=== PATIENT | female | born 1945 | race Hispanic/Latino ===

== ENCOUNTER → 2017-11-15 | Outpatient (CLI) | payer OTHER | LOC: RAH 14:28 | PROVIDERS: ATTEND Family Medicine | DX: Z12.31 Encounter for screening mammogram for malignant neoplasm of breast (principal) | CPT/HCPCS: 77067 ==

== ENCOUNTER → 2018-11-03 | Outpatient (CLI) | payer OTHER | END | disposition home or self-care (01) | LOC: RAH 12:45 | PROVIDERS: ATTEND Internal Medicine Cardiovascular Disease | DX: Z13.6 Encounter for screening for cardiovascular disorders (principal) | CPT/HCPCS: 75571 ==

== ENCOUNTER → 2018-12-26 | Outpatient (CLI) | payer OTHER | END | disposition home or self-care (01) | LOC: RAH 11:15 | PROVIDERS: ATTEND Family Medicine | DX: Z12.31 Encounter for screening mammogram for malignant neoplasm of breast (principal) | CPT/HCPCS: 77067 ==

== ENCOUNTER 2019-08-26 08:36 | Day surgery (SDC) | payer OTHER ==
[2019-08-25 10:33] VITALS: BP 114/55
[2019-08-25 10:36] LABS: BASOPHILS % (AUTO) 1.1 % (0.0-5.0); EOSINOPHILS % (AUTO) 1.9 % (0.0-8.0); HEMATOCRIT 41.9 % (36-48); LYMPHOCYTES % (AUTO) 13.4 % (21.0-51.0); MEAN CORPUSCULAR HEMOGLOBIN 28.7 pg (27.0-33.0); MEAN CORPUSCULAR HGB CONC 33.5 g/dL (32.0-36.0); MEAN CORPUSCULAR VOLUME 85.6 fL (79-99); MONOCYTES % (AUTO) 5.5 % (3.0-13.0); NEUTROPHILS % (AUTO) 78.1 % (40.0-77.0); PLATELET COUNT (AUTO) 374 K/uL (130-400); RED BLOOD CELL COUNT(AUTO) 4.89 MIL/uL (4.00-5.50); WHITE BLOOD COUNT (AUTO) 7.5 K/uL (4.8-10.8)
[2019-08-25 10:49] LABS: CREATININE 0.7 mg/dL (0.5-1.5); POTASSIUM 4.6 mmol/L (3.5-5.1)
[2019-08-25 10:52] LABS: INR 0.98 (0.85-1.15); PROTHROMBIN TIME 10.3 SEC (9.6-11.6)
[~2019-08-26] VITALS: Ht 165.1 cm; Wt 62.9 kg
[2019-08-26] VITALS (19 sets, daily range): BP systolic 111–144; BP diastolic 49–68
[~2019-08-26 08:36] MED LIST: ASPI-555 PO; ATOR40TA71 PO; CLOP75TA14 PO; FENTANYL CITRATE PF 50 MCG/1 ML 2ML VIAL ONE; FLUMAZENIL 0.1MG/1ML 5ML VIAL IV ONE; MIDAZOLAM HCL 1 MG/ML 2ML VIAL ONE; NALOXONE HCL 0.4 MG/1 ML ML ONE
--- NOTE | 2019-08-26 08:40 | NUR ---
PATIENT ARRIVED PATIENT ARRIVED TO DAY PATIENT ACCOMPANIED BY BROTHER. PATIENT AAOX3, RESPIRATIONS UNLABORED, VITAL SIGNS STABLE. PATIENT DENIES ANY PAIN AT THIS TIME. PROCEDURE VERIFIED AND CONFIRMED WITH PATIENT. HOSPITAL ROUTINE EXPLAINED TO PATIENT AND PT VERBALIZED UNDERSTANDING. ALL QUESTION/CONCERNS ADDRESSED.
[2019-08-26] MEDS ORDERED: LIDOCAINE HCL 2% VISCOUS 15 ML UDCUP ONE (10:13)
[2019-08-26] MEDS ORDERED: FENTANYL CITRATE PF 50 MCG/1 ML 2ML VIAL IVP ONE (11:00)
[2019-08-26] MEDS ORDERED: LIDOCAINE HCL 2% VISCOUS 15 ML UDCUP PO ONE (11:00)
[2019-08-26] MEDS ORDERED: MIDAZOLAM HCL 1 MG/ML 5ML VIAL IVP ONE (11:00)
[2019-08-26] MEDS ORDERED: MIDAZOLAM HCL 1 MG/ML 2ML VIAL ONE (11:38)
--- NOTE | 2019-08-26 12:04 | NUR ---
JEREMY PROCEDURE TRANSESOPHAGEAL ECHOCARDIOGRAM DONE BY DR GUERIN. 1128 TIMEOUT DONE BY HELLEN BELLO,RN AND PHYSICIAN (DR GUERIN) 1133 VERSED 2MG IV PUSH ADMINISTERED 1134 FENTANYL 25MCG IV PUSH ADMINISTERED 1136 FENTANYL 25MCG IV PUSH ADMINISTERED 1137 VERSED 2MG IV PUSH ADMINISTERED 1138 JEREMY PROCEDURE STARTED, SCOPE INTRODUCED INTO PATIENT'S MOUTH/ESOPHAGUS. PATIENT ASLEEP/SEDATED. 1148 JEREMY PROCEDURE COMPLETE, SCOPE REMOVED FROM PATIENT'S MOUTH, PATIENT TOLERATED PROCEDURE WELL 1149 DR GUERIN OUT OF ROOM
--- NOTE | 2019-08-26 13:26 | NUR ---
DISCHARGE INSTRUCTIONS: DISCHARGE INSTRUCTIONS GIVEN TO PATIENT'S BROTHER. FOLLOW UP APPOINTMENTS PROVIDED AND HANDOUTS ON JEREMY PROCEDURE PROVIDED AND EXPLAINED. ALL QUESTIONS/CONCERNS ADDRESSED.
--- NOTE | 2019-08-26 13:50 | NUR ---
PATIENT DISCHARGED PATIENT DISCHARGED FROM FACILITY VIA WHEELCHAIR BY DELMY. PATIENT ABLE TO TRANSFER INTO PRIVATE VEHICLE DRIVEN BY FAMILY MEMBER.
== END 2019-08-26 13:50 | disposition home or self-care (01) ==
LOC: DAH 08:36
PROVIDERS: ATTEND Internal Medicine Cardiovascular Disease
DX: I67.9 Cerebrovascular disease, unspecified (principal); I34.0 Nonrheumatic mitral (valve) insufficiency; I07.1 Rheumatic tricuspid insufficiency; E78.5 Hyperlipidemia, unspecified; Z79.899 Other long term (current) drug therapy; Z88.1 Allergy status to other antibiotic agents; Z79.01 Long term (current) use of anticoagulants
CPT/HCPCS: 36415; 80048; 85025; 85610; 85730; 93312; 93325; A4215; A4216; A4221; A4222; A4223 ×3; A4606; A4663; J2250 ×2; J3010; 93313; 99152; J2310; J3490

== ENCOUNTER → 2020-07-25 | Outpatient (CLI) | payer OTHER ==
[~2020-07-25] MED LIST changes: -ASPI-555 PO; +ASPI-556 PO; -FENTANYL CITRATE PF 50 MCG/1 ML 2ML VIAL ONE; -FLUMAZENIL 0.1MG/1ML 5ML VIAL IV ONE; -MIDAZOLAM HCL 1 MG/ML 2ML VIAL ONE; -NALOXONE HCL 0.4 MG/1 ML ML ONE
== END | disposition home or self-care (01) ==
LOC: RAH 11:17
PROVIDERS: ATTEND Internal Medicine
DX: Z12.31 Encounter for screening mammogram for malignant neoplasm of breast (principal); N64.89 Other specified disorders of breast
CPT/HCPCS: 77067

== ENCOUNTER → 2020-08-02 | Outpatient (CLI) | payer OTHER ==
[~2020-08-02] MED LIST changes: +REGADENOSON 0.4 MG/5 ML PF SYG IVP SCH
== END | disposition home or self-care (01) ==
LOC: SHCH 08:07
PROVIDERS: ATTEND Internal Medicine Cardiovascular Disease
DX: R07.9 Chest pain, unspecified (principal)
CPT/HCPCS: 78452; 93017; 96374; A9500 ×2; J2785

== ENCOUNTER → 2020-08-11 | Outpatient (CLI) | payer OTHER ==
[~2020-08-11] MED LIST changes: -REGADENOSON 0.4 MG/5 ML PF SYG IVP SCH
== END | disposition home or self-care (01) ==
LOC: RAH 14:05
PROVIDERS: ATTEND Internal Medicine Cardiovascular Disease
DX: Z13.6 Encounter for screening for cardiovascular disorders (principal)
CPT/HCPCS: 75571

== ENCOUNTER → 2023-08-01 | Outpatient (CLI) | payer OTHER ==
[~2023-08-01] MED LIST changes: +CLOP-31 PO; -CLOP75TA14 PO
== END | disposition home or self-care (01) ==
LOC: RAH 09:42
PROVIDERS: ATTEND Nurse Practitioner Family
DX: Z12.31 Encounter for screening mammogram for malignant neoplasm of breast (principal)
CPT/HCPCS: 77067

== ENCOUNTER → 2025-02-04 | Outpatient (CLI) | payer OTHER ==
--- NOTE | 2025-02-04 15:55 | HMCIMG ---
BONE DENSITOMETRY: HISTORY: Other specified disorders of bone density and structure, left thigh Comparison: none FINDINGS: BMD measured at AP spine L1-L4 is 1.088 g/cm2 with a T-score of 0.4 Bone density is up to 10% below young normal. This patient is considered normal according to WHO criteria. Fracture risk is low. BMD measured at Left Femoral Neck is 0.684 g/cm2 with a T-score of -1.6 Bone density is between 10 and 25% below young normal. This patient is considered osteopenic. Fracture risk is moderate. BMD measured at Left Femoral Total is 0.835 g/cm2 with a T-score of -0.9 Bone density is up to 10% below young normal. This patient is considered normal according to WHO criteria. Fracture risk is low. IMPRESSION: Osteopenia. Treatment and follow-up recommended.
== END | disposition home or self-care (01) ==
LOC: RAH 12:57
PROVIDERS: ATTEND Internal Medicine
DX: M85.852 Other specified disorders of bone density and structure, left thigh (principal)
CPT/HCPCS: 77080